=== PATIENT | female | born 1950 | race Caucasian/White ===

== ENCOUNTER → 2018-05-28 09:20 | Outpatient (CLI) | payer MEDICARE, OTHER, SELFPAY ==
--- NOTE | 2018-05-28 09:26 | MM_ITS ---
MM Dig screening mamm BI w/CAD ORDERING PHYSICIAN : Lianna Newberry PATIENT AGE: 67 years GENDER: Female COMPARISON: March 2017. February I iNDICATION: ITS.REASON: SCREENING no hormones no new complaints. Family history paternal with breast cancer TECHNIQUE: Standard CC and MLO images were obtained. R2 CAD reviewed. FINDINGS: With generalized fatty replacement with minimal fibroglandular elements. Low-density breast with no dominant mass nor suspicious calcification.2 Small long-standing stable benign calcifications inferior left breast not of concern & can be followed safely. No significant change since prior studies. CAD computer review highlights no areas of concern either. Bilateral follow-up in one year ------ IMPRESSION: Stable bilateral mammogram with no significant new findings. No new areas of concern BI-RADS Category: 1 Negative RECOMMENDED FOLLOW-UP: 1YR 1 YEAR FOLLOW-UP (A letter has been sent to the patient regarding results of the study.)
== END ==
PROVIDERS: Family Provider Internal Medicine Adolescent Medicine; PCP Internal Medicine Adolescent Medicine; Visit Provider Nurse Practitioner Family
DX: Z12.31 Encounter for screening mammogram for malignant neoplasm of breast (principal)
CPT/HCPCS: 77067

== ENCOUNTER → 2018-12-06 09:04 | Outpatient (CLI) | payer MEDICARE, OTHER, SELFPAY ==
--- NOTE | 2018-12-06 09:14 | FL_ITS ---
FL upper GI esophagus w/air HISTORY: Nausea, surgery, ORDERING PHYSICIAN: Lianna Newberry PATIENT AGE: 68 years FINDINGS: There is persistent mild smooth narrowing of the distal esophagus. This could be related to patient's prior hiatal hernia surgery. No annular constricting lesions or mucosal abnormality evident. Stomach and duodenum have an unremarkable appearance without evidence of mass or ulcer. There is a duodenal diverticulum projecting off the medial portion of the descending duodenum. Fluoroscopy time: 2 minutes 11 seconds. IMPRESSION: 1. No acute finding. 2. Smooth narrowing of the distal esophagus which may be related to patient's prior esophageal surgery. 3. Small duodenal diverticulum
[2018-12-06 10:45] LABS: Hemoglobin A1C 6.8 % (0.0-7.0)
[2018-12-06 10:50] LABS: Basophils % 0.4 % (0.1-2.0); Eosinophils # 0.2 K/mm3 (0.0-0.4); Eosinophils % 3.3 % (0.1-12.0); Hemoglobin 10.2 g/dL (12.2-16.2); Lymphocytes # 2.2 K/mm3 (0.7-4.5); Lymphocytes % 39.7 % (10-50); Mean Corpuscular HGB Conc 30.1 g/dL (31.8-35.4); Mean Corpuscular Volume 79.9 fl (81-99); Mean Platelet Volume 6.8 fl (7.4-10.4); Monocytes # 0.3 K/mm3 (0.1-1.0); Monocytes % 5.7 % (1.7-9.3); Neutrophils # 2.8 K/mm3 (1.8-7.8); Neutrophils % 50.9 % (37.0-80.0); Platelet Count 378 K/mm3 (142-424); Red Blood Count 4.25 M/mm3 (4.20-5.40); Red Cell Distribution Width 15.4 % (11.5-17.5); White Blood Count 5.6 K/mm3 (4.8-10.8)
[2018-12-06 11:50] LABS: Alanine Aminotransferase 20 U/L (12-78); Albumin Level 3.6 gm/dL (3.4-5.0); Albumin/Globulin Ratio 1.2 (1.1-1.8); Alkaline Phosphatase 104 U/L (46-116); Anion Gap 15.4 mEq/L (5-15); Aspartate Amino Transferase 17 U/L (15-37); Bilirubin,Total 0.2 mg/dL (0.2-1.0); Blood Urea Nitrogen 19 mg/dL (7-18); Calcium 8.8 mg/dL (8.5-10.1); Carbon Dioxide 28 mmol/L (21.0-32.0); Chloride 105 mmol/L (98-107); Chol/HDL Ratio 3.4 (1-3.5); Cholesterol 152 mg/dL (140-200); Creatinine,Serum 0.84 mg/dL (0.55-1.02); Estimated Glomerular Filt Rate 67 ml/min (>60); GFR (African American) 81 ML/MIN (>60); Globulin 2.9 gm/dl (1.3-3.2); Glucose 107 mg/dL (74-106); HDL Cholesterol 45 mg/dL (29-89); LDL Cholesterol 86 mg/dL (0-130); Potassium 4.4 mmoL/L (3.5-5.1); Sodium 144 mmol/L (136-145); Thyroid Stimulating Hormone 2.29 uIU/ml (0.358-3.740); Total Protein,Serum 6.5 gm/dL (6.4-8.2); Triglycerides 106 mg/dL (30-200); Uric Acid 5.6 mg/dL (2.6-7.2); VLDL Cholesterol 21 mg/dL (0-40)
[2018-12-06 11:53] LABS: C-Reactive Protein < 0.2 mg/L (0.0-0.9)
[2018-12-07 11:36] LABS: Creatinine, Urine 154.7 mg/dL (Not Estab.); Microalbumin, Urine 10.9 ug/mL (Not Estab.)
[2018-12-07 14:21] LABS: Anti-Centromere B Antibodies <0.2 AI (0.0-0.9); Anti-Jo-1 <0.2 AI (0.0-0.9); Anti-Smith Antibody <0.2 AI (0.0-0.9); Antichromatin Antibodies <0.2 AI (0.0-0.9); Antiscleroderma-70 Antibodies <0.2 AI (0.0-0.9); RNP Antibodies <0.2 AI (0.0-0.9); Sjogren's Anti-SS-A <0.2 AI (0.0-0.9); Sjogren's Anti-SS-B <0.2 AI (0.0-0.9)
[2018-12-07 16:15] LABS: Anti-DNA (DS) Ab Qn <1 IU/mL (0-9); RA Latex Turbid. <10.0 IU/mL (0.0-13.9)
[2018-12-08 07:44] LABS: Anti-Cyclic Citrullinated Pept 5 units (0-19)
== END ==
PROVIDERS: PCP Nurse Practitioner Family; Visit Provider Nurse Practitioner Family
DX: M25.50 Pain in unspecified joint (principal); E11.9 Type 2 diabetes mellitus without complications; E78.5 Hyperlipidemia, unspecified; R13.10 Dysphagia, unspecified; R11.0 Nausea; R68.3 Clubbing of fingers; R80.9 Proteinuria, unspecified
CPT/HCPCS: 36415; 74241; 80053; 80061; 82043; 82570; 83036; 84443; 84550; 85025; 86140; 86200; 86225; 86235; 86431

== ENCOUNTER → 2018-12-09 10:07 | Outpatient (CLI) | payer MEDICARE, OTHER, SELFPAY ==
[2018-12-09 12:09] LABS: Ferritin 9 ng/mL (8-388)
[2018-12-10 08:26] LABS: Iron 35 ug/dL (27-139); UIBC 476 ug/dL (118-369)
[2018-12-10 12:27] LABS: Folate 14.7 ng/mL (>3.0); Iron Saturation 7 % (15-55); Vitamin B12 249 pg/mL (232-1245)
[2018-12-10 17:11] LABS: Angiotensin Converting Enzyme 45 U/L (14-82)
== END ==
PROVIDERS: Visit Provider Nurse Practitioner Family
DX: D50.9 Iron deficiency anemia, unspecified (principal)
CPT/HCPCS: 36415; 82164; 82607; 82728; 82746; 83540; 83550

== ENCOUNTER → 2018-12-21 12:41 | Outpatient (CLI) | payer MEDICARE, OTHER, SELFPAY ==
--- NOTE | 2018-12-21 | XR_ITS ---
XR hand LT min 3V HISTORY: Nail clubbing ORDERING PHYSICIAN: Lianna Newberry PATIENT AGE: 68 years COMPARISON: 02/12/2016 FINDINGS: There are osteoarthritic changes at the DIP joint of the second, fourth, and fifth fingers. This has progressed. Osteoarthritic changes are also present at the first metacarpal carpal joint with periarticular calcification and mild lateral subluxation of the first metacarpal. This has also progressed. No fracture or dislocation. No lytic or blastic change. IMPRESSION: Progressive osteoarthritic change
--- NOTE | 2018-12-21 | XR_ITS ---
XR hand RT min 3V HISTORY: Nail clubbing ORDERING PHYSICIAN: Lianna Newberry PATIENT AGE: 68 years COMPARISON: None FINDINGS: There are mild osteoarthritic changes of the second DIP joint and the first metacarpophalangeal joint as well as the first carpal metacarpal joint with periarticular calcification at the first metacarpal carpal joint. There is an expansile cystic lesion involving the base of the first metacarpal which measures 16 x 13 mm. This is very well circumscribed. IMPRESSION: 1. Mild osteoarthritic change 2. 16 mm cystic lesion at the base of the first metacarpal. Follow-up is suggested to confirm stability. The lesion is well circumscribed with a thin sclerotic margin. MRI without and with contrast may be of further value.
--- NOTE | 2018-12-21 | XR_ITS ---
XR chest 2V HISTORY: Nail clubbing ORDERING PHYSICIAN: Lianna Newberry PATIENT AGE: 68 years COMPARISON: None FINDINGS: Unremarkable heart size. Atherosclerotic calcification is present in the aortic arch. There are chronic changes in the lung bases. No lobar consolidation or collapse. No acute bony findings. Mild thoracolumbar curvature convex right. IMPRESSION: Chronic changes, no acute finding
== END ==
PROVIDERS: PCP Internal Medicine Adolescent Medicine; Visit Provider Nurse Practitioner Family
DX: R68.3 Clubbing of fingers (principal); L60.8 Other nail disorders; M25.50 Pain in unspecified joint
CPT/HCPCS: 71046; 73130

== ENCOUNTER → 2019-02-10 10:47 | Outpatient (CLI) | payer MEDICARE, OTHER, SELFPAY ==
--- NOTE | 2019-02-10 11:39 | NM_ITS ---
CARDIOLITE SPECT MYOCARDIAL PERFUSION LEXISCAN, REST AND STRESS: [facility] REVIEW QGS EF AND WALL MOTION EVALUATION: QPS - PERFUSION EVALUATION HISTORY: SOB, Syncope, Fatigue, HTN, DM, Family history DOSE: 11.06 mCi technetium 99m mibi intravenously at rest followed by 32.6 mCi technetium 99m mibi following the intravenous ministration of 0.4 mg of Lexiscan. Resting blood pressure is 157/89. Stress blood pressure 135/75. FINDINGS: Ejection fraction is calculated to be 60%. Uniform myocardial activity with both stress and rest gated images calculated ejection fraction of 60% with normal wall motion IMPRESSION: No scintigraphic evidence of Lexiscan-induced myocardial ischemia with normal ejection fraction normal wall motion
--- NOTE | 2019-02-10 13:51 | HMH.ITSHM ---
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 []metformin pravastatin metoprolol asa omeprazole lorazepam
== END ==
PROVIDERS: PCP Internal Medicine Adolescent Medicine; Visit Provider Urology
DX: R06.02 Shortness of breath (principal); E78.5 Hyperlipidemia, unspecified; I10 Essential (primary) hypertension; I70.0 Atherosclerosis of aorta; Z82.49 Family history of ischemic heart disease and other diseases of the circulatory system
CPT/HCPCS: 78452; 93017; 93306; A9502; J2785

== ENCOUNTER → 2019-07-07 10:23 | Outpatient (CLI) | payer MEDICARE, OTHER, SELFPAY ==
--- NOTE | 2019-07-07 10:26 | MM_ITS ---
PROCEDURE: MM DIG SCREENING MAMM BI W/CAD Patient Age:68Y CLINICAL INDICATION: SCREENING routine screening mammogram. No hormones; no new complaints... Family history: Paternal aunt with breast cancer postmenopausal. COMPARISON: [facility] DIGITAL MAMM-SCREEN BILATERAL from 04/07/2011 [facility] DIG MAMM-SCREEN AVERY from 08/04/2013 [facility] DIG MAMM-SCREEN AVERY from 03/08/2015 [facility] DIG MAMM-SCREEN AVERY W/CAD from 04/15/2017 [facility] MM Dig screening mamm BI w/CAD from 05/28/2018 TECHNIQUE: Standard CC and MLO images were obtained. R2 CAD reviewed. FINDINGS: Low-density breast with generalized fatty replacement. No dominant or suspicious mass in either breast. No suspicious calcifications. No significant change since multiple priors available studies. Bilateral follow-up 1 year recommended. IMPRESSION: negative stable bilateral mammogram. Bilateral follow-up 1 year. Low-density breast with diffuse fatty replacement BI-RAD Category: 1 Negative FOLLOW-UP: 1YR 1 Year Follow-up (A letter has been sent to the patient regarding results of the study.) Dictated by: Grupo Smith MD 07/11/2019 11:04 Electronically signed by Grupo Smith MD in [place] 07/11/2019 11:04
== END ==
PROVIDERS: PCP Internal Medicine Adolescent Medicine; Visit Provider Nurse Practitioner Family
DX: Z12.31 Encounter for screening mammogram for malignant neoplasm of breast (principal)
CPT/HCPCS: 77067

== ENCOUNTER → 2019-11-18 10:17 | Outpatient (CLI) | payer MEDICARE, OTHER, SELFPAY ==
[2019-11-18 10:53] LABS: Basophils % 0.4 % (0.1-2.0); Eosinophils # 0.1 K/mm3 (0.0-0.4); Eosinophils % 1.7 % (0.1-12.0); Hematocrit 27.2 % (37.0-47.0); Lymphocytes % 43.4 % (10-50); Mean Corpuscular HGB Conc 29.1 g/dL (31.8-35.4); Mean Corpuscular Hemoglobin 24.6 pg (27.0-31.2); Mean Corpuscular Volume 84.6 fl (81-99); Mean Platelet Volume 7.5 fl (7.4-10.4); Monocytes # 0.3 K/mm3 (0.1-1.0); Monocytes % 6.7 % (1.7-9.3); Neutrophils # 2.1 K/mm3 (1.8-7.8); Neutrophils % 47.7 % (37.0-80.0); Platelet Count 404 K/mm3 (142-424); Red Blood Count 3.21 M/mm3 (4.20-5.40); Red Cell Distribution Width 13.8 % (11.5-17.5); White Blood Count 4.5 K/mm3 (4.8-10.8)
[2019-11-18 11:01] LABS: Hemoglobin 7.9 g/dL (12.2-16.2)
[2019-11-18 12:53] LABS: Alanine Aminotransferase 17 U/L (12-78); Albumin Level 3.6 gm/dL (3.4-5.0); Albumin/Globulin Ratio 1.4 (1.1-1.8); Alkaline Phosphatase 86 U/L (46-116); Anion Gap 12.8 mEq/L (5-15); Aspartate Amino Transferase 21 U/L (15-37); Bilirubin,Total 0.2 mg/dL (0.2-1.0); Blood Urea Nitrogen 13 mg/dL (7-18); Calcium 8.6 mg/dL (8.5-10.1); Carbon Dioxide 29 mmol/L (21.0-32.0); Chloride 107 mmol/L (98-107); Chol/HDL Ratio 3.8 (1-3.5); Cholesterol 155 mg/dL (140-200); Creatinine,Serum 0.91 mg/dL (0.55-1.02); Estimated Glomerular Filt Rate 61 ml/min (>60); Ferritin 7 ng/mL (8-388); GFR (African American) 74 ML/MIN (>60); Globulin 2.5 gm/dl (1.3-3.2); Glucose 91 mg/dL (74-106); HDL Cholesterol 41 mg/dL (29-89); LDL Cholesterol 74 mg/dL (0-130); Potassium 4.8 mmoL/L (3.5-5.1); Sodium 144 mmol/L (136-145); Thyroid Stimulating Hormone 2.93 uIU/ml (0.358-3.740); Total Protein,Serum 6.1 gm/dL (6.4-8.2); Triglycerides 202 mg/dL (30-200); VLDL Cholesterol 40 mg/dL (0-40)
[2019-11-18 15:05] LABS: Hemoglobin A1C 6.5 % (0.0-7.0)
[2019-11-19 08:09] LABS: Iron 20 ug/dL (27-139); Iron Saturation 3 % (15-55); UIBC 553 ug/dL (118-369)
[2019-11-19 09:10] LABS: Creatinine, Urine 214.8 mg/dL (Not Estab.); Microalbumin, Urine 13.6 ug/mL (Not Estab.)
[2019-11-19 09:46] LABS: Folate 15.6 ng/mL (>3.0); Vitamin B12 279 pg/mL (232-1245)
== END ==
PROVIDERS: Visit Provider Nurse Practitioner Family
DX: D50.9 Iron deficiency anemia, unspecified (principal); I10 Essential (primary) hypertension; E78.5 Hyperlipidemia, unspecified; E11.9 Type 2 diabetes mellitus without complications; Z79.84 Long term (current) use of oral hypoglycemic drugs
CPT/HCPCS: 36415; 80053; 80061; 82043; 82570; 82607; 82728; 82746; 83036; 83540; 83550; 84443; 85025

== ENCOUNTER → 2019-11-21 13:38 | Outpatient (CLI) | payer MEDICARE, OTHER, SELFPAY ==
[2019-11-21 14:26] LABS: Hematocrit 25.3 % (37.0-47.0)
[2019-11-21 14:29] LABS: Hemoglobin 7.4 g/dL (12.2-16.2)
== END ==
PROVIDERS: Visit Provider Internal Medicine Adolescent Medicine
DX: D64.9 Anemia, unspecified (principal)
CPT/HCPCS: 36415; 85014; 85018

== ENCOUNTER 2019-11-22 09:03 | Outpatient (CLI) | payer MEDICARE, OTHER, SELFPAY ==
[2019-11-22] VITALS (22 sets, daily range): BP systolic 125–146; BP diastolic 67–90; PULSE 80–87; RESP 16–18; TEMP 36.5–36.8; O2SAT 97–99; BMI 31.8
[2019-11-22 11:25] LABS: Hematocrit 25.7 % (37.0-47.0)
[2019-11-22 11:26] LABS: Hemoglobin 7.5 g/dL (12.2-16.2)
--- NOTE | 2019-11-22 14:43 | PC.NURSE ---
1130 1st unit of blood initiated at this time. VSS. Lungs CTA. Resp easy/reg. IV patent. Pt denies c/o at this time. Pt instructed on s/s of blood transfusion reaction/pt verbs understanding of all instructions/handout given as well. No problems noted at this time. 1230 Pt tolerating 1st unit of blood well. No s/s of transfusion reaction or problems noted. Denies c/o at this time. VSS. Talking and laughing with staff as care given. 1345 1st unit of blood complete at this time. pt has tolerated well with no problems noted, no s/s reaction. VSS. Lungs CTA. Denies pain or c/o. IV patent. Resp easy/reg. Skin warm/dry to touch.
--- NOTE | 2019-11-22 15:22 | PC.NURSE ---
1410 2nd unit of blood initiated at this time. Pt denies c/o. VSS. Resp easy/reg. Lungs CTA. IV patent. Reviewed s/s of transfusion reaction with pt verbalizing understanding of all instructions/handout reviewed. 1510 Pt tolerating 2nd unit of blood well at this time with no problems and no s/s transfusion reaction noted. VSS. Lungs CTA. IV patent. Resp easy/reg. Denies c/o.
--- NOTE | 2019-11-22 17:19 | PC.NURSE ---
1610 Transfusion of 2nd unit of blood complete. VSS. Pt has tolerated well with no s/s transfusion reaction or problems noted. Pt denies c/o. Lungs CTA. Resp easy/reg. Skin warm/dry to touch. Will obtain 1 hour post H&H at 1710. 1710 Pt stable/no problems noted. No s/s transfusion reaction noted. Denies c/o. VSS. 1 hour post transfusion H&H obtained/to lab/ awaiting results.
[2019-11-22 17:24] LABS: Hematocrit 33.8 % (37.0-47.0)
[2019-11-22 17:47] LABS: Hemoglobin 10.4 g/dL (12.2-16.2)
--- NOTE | 2019-11-22 17:55 | PC.NURSE ---
1 hour post transfusion H&H stable at 10.4/33.8.
== END 2019-11-22 17:30 | disposition home or self-care (01) ==
LOC: INF 09:03
PROVIDERS: PCP Internal Medicine Adolescent Medicine; Visit Provider Nurse Practitioner Family
DX: D50.9 Iron deficiency anemia, unspecified (principal)
CPT/HCPCS: 36430; 85014; 85018; 86850; P9016

== ENCOUNTER → 2019-11-28 11:21 | Outpatient (CLI) | payer MEDICARE, OTHER, SELFPAY ==
[2019-11-28 11:58] LABS: Hematocrit 35.9 % (37.0-47.0); Hemoglobin 10.7 g/dL (12.2-16.2)
== END ==
PROVIDERS: Visit Provider Internal Medicine Adolescent Medicine
DX: D64.9 Anemia, unspecified (principal)
CPT/HCPCS: 36415; 85014; 85018

== ENCOUNTER → 2020-12-03 13:13 | Outpatient (CLI) | payer MEDICARE, OTHER, SELFPAY ==
[2020-12-03 13:24] LABS: Microscopic, Urine URINE MICROSCOPIC (MICROSCOPIC)
[2020-12-03 13:44] LABS: Basophils % 0.6 % (0.1-2.0); Eosinophils # 0.1 K/mm3 (0.0-0.4); Eosinophils % 1.2 % (0.1-12.0); Hematocrit 38.3 % (37.0-47.0); Hemoglobin 11.4 g/dL (12.2-16.2); Lymphocytes # 2.6 K/mm3 (0.7-4.5); Lymphocytes % 41.2 % (10-50); Mean Corpuscular HGB Conc 29.8 g/dL (31.8-35.4); Mean Corpuscular Volume 84.1 fl (81-99); Mean Platelet Volume 7.6 fl (7.4-10.4); Monocytes # 0.3 K/mm3 (0.1-1.0); Neutrophils # 3.3 K/mm3 (1.8-7.8); Platelet Count 418 K/mm3 (142-424); Red Blood Count 4.55 M/mm3 (4.20-5.40); Red Cell Distribution Width 14.9 % (11.5-17.5); White Blood Count 6.3 K/mm3 (4.8-10.8)
[2020-12-03 13:48] LABS: Appearance,Urine CLEAR (Clear); Bilirubin,Urine Negative (Negative); Blood, Urine TRACE-I (Negative); Color,Urine YELLOW (Yellow); Glucose,Urine (UA) Negative (Negative); Ketones,Urine Negative (Negative); Leukocyte Esterase,Urine Negative (Negative); Nitrate,Urine Negative (Negative); Protein,Urine TRACE (Negative); Specific Gravity, Urine >= 1.030 (1.005-1.030); Urobilinogen,Urine 0.2 EU/dl (0.2)
[2020-12-03 13:54] LABS: Hemoglobin A1C 6.4 % (4.0-6.0)
[2020-12-03 13:58] LABS: Microalbumin/Creatinine Ratio 4.6
[2020-12-03 13:59] LABS: Creatinine,Urine Random 242 mg/dL (Not Estab.)
[2020-12-03 14:02] LABS: Squamous Epithelial Cell,Urine Occasional #/hpf (0-5)
[2020-12-03 14:09] LABS: Alanine Aminotransferase 15 U/L (12-78); Albumin Level 5.1 g/dl (3.5-5.0); Albumin/Globulin Ratio 1.8 (1.1-1.8); Alkaline Phosphatase 107 U/L (38-126); Anion Gap 13.5 mEq/L (5-15); Aspartate Amino Transferase 30 U/L (14-36); Bilirubin,Total 0.4 mg/dl (0.2-1.3); Blood Urea Nitrogen 17 mg/dl (7-17); Calcium 10.6 mg/dl (8.4-10.2); Carbon Dioxide 30 mmol/L (22.0-30.0); Chloride 106 mmol/L (98-107); Chol/HDL Ratio 4.4 (1-3.5); Cholesterol 226 mg/dl (140-200); Estimated Glomerular Filt Rate 62 ml/min (>60); GFR (African American) 75 ML/MIN (>60); Globulin 2.9 g/dL (1.3-3.2); Glucose 112 mg/dl (74-100); HDL Cholesterol 51 mg/dl (40-60); Potassium 5.5 mmoL/L (3.5-5.1); Sodium 144 mmol/L (136-145); Triglycerides 359 mg/dl (30-150); VLDL Cholesterol 72 mg/dL (0-40)
[2020-12-03 14:20] LABS: Direct LDL Cholesterol 108.67 mg/dL (100-129)
[2020-12-03 14:39] LABS: Thyroid Stimulating Hormone 4.41 uIU/mL (0.465-4.68)
== END ==
PROVIDERS: Visit Provider Nurse Practitioner Family
DX: E11.9 Type 2 diabetes mellitus without complications (principal); I10 Essential (primary) hypertension; E78.5 Hyperlipidemia, unspecified; D50.0 Iron deficiency anemia secondary to blood loss (chronic)
CPT/HCPCS: 36415; 80053; 80061; 81001; 82043; 82570; 83036; 84443; 85025

== ENCOUNTER → 2021-01-26 10:45 | Outpatient (CLI) | payer MEDICARE, OTHER, SELFPAY | PROVIDERS: Visit Provider Nurse Practitioner Family | DX: D50.0 Iron deficiency anemia secondary to blood loss (chronic) (principal) | CPT/HCPCS: 36415 ==

== ENCOUNTER 2021-02-18 14:00 | Outpatient (CLI) | payer MEDICARE, OTHER, SELFPAY ==
[2021-02-18 14:23] VITALS: BP 145/82; PULSE 94; RESP 18; TEMP 36.6; O2SAT 99
[2021-02-18 15:35] VITALS: BP 135/73; PULSE 88; RESP 18; O2SAT 97
== END 2021-02-18 15:35 | disposition home or self-care (01) ==
LOC: INF 14:00
PROVIDERS: PCP Internal Medicine Adolescent Medicine; Visit Provider Nurse Practitioner Family
DX: D50.0 Iron deficiency anemia secondary to blood loss (chronic) (principal)
CPT/HCPCS: 96365; J1439

== ENCOUNTER 2021-02-25 14:05 | Outpatient (CLI) | payer MEDICARE, OTHER, SELFPAY ==
[2021-02-25 14:19] VITALS: BP 119/74; PULSE 92; RESP 18; TEMP 36.7; O2SAT 98
[2021-02-25 14:49] VITALS: BP 121/78; PULSE 90; RESP 18; O2SAT 98
[2021-02-25 15:00] VITALS: BP 116/79; PULSE 78; RESP 18; O2SAT 98
== END 2021-02-25 15:00 | disposition home or self-care (01) ==
LOC: INF 14:05
PROVIDERS: Visit Provider Nurse Practitioner Family
DX: D50.0 Iron deficiency anemia secondary to blood loss (chronic) (principal)
CPT/HCPCS: 96365; J1439

== ENCOUNTER → 2021-03-09 10:39 | Outpatient (CLI) | payer MEDICARE, OTHER, SELFPAY ==
[2021-03-09 11:12] LABS: Basophils % 0.6 % (0.1-2.0); Eosinophils # 0.1 K/mm3 (0.0-0.4); Eosinophils % 1.2 % (0.1-12.0); Hematocrit 38.6 % (37.0-47.0); Hemoglobin 10.7 g/dL (12.2-16.2); Lymphocytes # 1.8 K/mm3 (0.7-4.5); Lymphocytes % 40.9 % (10-50); Mean Corpuscular HGB Conc 27.7 g/dL (31.8-35.4); Mean Corpuscular Hemoglobin 25.7 pg (27.0-31.2); Mean Corpuscular Volume 92.6 fl (81-99); Mean Platelet Volume 7.5 fl (7.4-10.4); Monocytes # 0.3 K/mm3 (0.1-1.0); Monocytes % 6.3 % (1.7-9.3); Neutrophils # 2.2 K/mm3 (1.8-7.8); Neutrophils % 50.9 % (37.0-80.0); Platelet Count 348 K/mm3 (142-424); Red Blood Count 4.17 M/mm3 (4.20-5.40); White Blood Count 4.3 K/mm3 (4.8-10.8)
[2021-03-09 11:32] LABS: Red Cell Distribution Width 26.4 % (11.5-17.5)
[2021-03-09 13:12] LABS: Anion Gap 12.5 mEq/L (5-15); Blood Urea Nitrogen 12 mg/dl (7-17); Calcium 9.4 mg/dl (8.4-10.2); Carbon Dioxide 25 mmol/L (22.0-30.0); Chloride 107 mmol/L (98-107); Estimated Glomerular Filt Rate 82 ml/min (>60); GFR (African American) 100 ML/MIN (>60); Glucose 94 mg/dl (74-100); Potassium 4.5 mmoL/L (3.5-5.1); Sodium 140 mmol/L (136-145)
== END ==
PROVIDERS: Visit Provider Colon & Rectal Surgery
DX: Z79.891 Long term (current) use of opiate analgesic (principal); Z01.818 Encounter for other preprocedural examination; R06.02 Shortness of breath; I70.0 Atherosclerosis of aorta
CPT/HCPCS: 36415; 80048; 85025

== ENCOUNTER → 2021-07-26 12:40 | Outpatient (CLI) | payer MEDICARE, OTHER, SELFPAY ==
--- NOTE | 2021-07-26 12:44 | MM_ITS ---
PROCEDURE: MM DIG SCREENING MAMM BI W/CAD Digital Breast Tomosynthesis Included CLINICAL INDICATION: SCREENING There is a history of breast cancer in the patient's daughter before menopause the patient's maternal diagnosed after menopause. COMPARISON: MG [facility] DIG MAMM-SCREEN AVERY W/CAD from 04/15/2017 MG [facility] MM Dig screening mamm BI w/CAD from 05/28/2018 MG MM DIG SCREENING MAMM BI W/CAD from 07/07/2019 TECHNIQUE: Standard CC and MLO images and 3D Tomosynthesis was obtained. R2 CAD reviewed. FINDINGS: Breasts are composed primarily of with minimal scattered fibroglandular densities breast. There are no CAD markings. There are couple of benign-appearing microcalcifications left breast. There is no suspicious lesion and no suspicious microcalcifications. IMPRESSION: Fatty type breast parenchyma with no suspicious lesions seen BI-RAD Category: 2 Benign Finding(s) FOLLOW-UP: 1YR 1 Year Follow-up (A letter has been sent to the patient regarding results of the study.) Dictated by: Dr. Jesus Gibbs MD 08/01/2021 15:28 Dr. Jesus Gibbs MD in [place] 08/01/2021 15:28
== END ==
PROVIDERS: PCP Nurse Practitioner Family; Visit Provider Internal Medicine Adolescent Medicine
DX: Z12.31 Encounter for screening mammogram for malignant neoplasm of breast (principal)
CPT/HCPCS: 77063; 77067

== ENCOUNTER → 2021-08-12 12:16 | Outpatient (CLI) | payer MEDICARE, OTHER, SELFPAY ==
[2021-08-12 13:25] LABS: Microalbumin/Creatinine Ratio 4.4
[2021-08-12 13:26] LABS: Creatinine,Urine Random 254 mg/dL (Not Estab.)
[2021-08-12 13:32] LABS: Alanine Aminotransferase 14 U/L (12-78); Albumin Level 4.3 g/dl (3.5-5.0); Albumin/Globulin Ratio 1.9 (1.1-1.8); Alkaline Phosphatase 96 U/L (38-126); Anion Gap 11.9 mEq/L (5-15); Aspartate Amino Transferase 32 U/L (14-36); Bilirubin,Total 0.4 mg/dl (0.2-1.3); Blood Urea Nitrogen 13 mg/dl (7-17); Calcium 9.3 mg/dl (8.4-10.2); Carbon Dioxide 31 mmol/L (22.0-30.0); Chloride 103 mmol/L (98-107); Chol/HDL Ratio 3.8 (1-3.5); Cholesterol 165 mg/dl (140-200); Estimated Glomerular Filt Rate 82 ml/min (>60); GFR (African American) 100 ML/MIN (>60); Globulin 2.3 g/dL (1.3-3.2); Glucose 102 mg/dl (74-100); HDL Cholesterol 43 mg/dl (40-60); Potassium 4.9 mmoL/L (3.5-5.1); Sodium 141 mmol/L (136-145); Total Protein,Serum 6.6 g/dl (6.3-8.2); Triglycerides 219 mg/dl (30-150); VLDL Cholesterol 44 mg/dL (0-40)
[2021-08-12 13:39] LABS: Basophils % 0.4 % (0.1-2.0); Eosinophils # 0.1 K/mm3 (0.0-0.4); Hematocrit 44.5 % (37.0-47.0); Hemoglobin 14.4 g/dL (12.2-16.2); Lymphocytes # 2.2 K/mm3 (0.7-4.5); Mean Corpuscular HGB Conc 32.4 g/dL (31.8-35.4); Mean Corpuscular Hemoglobin 32.1 pg (27.0-31.2); Mean Corpuscular Volume 99.1 fl (81-99); Mean Platelet Volume 8.5 fl (7.4-10.4); Monocytes # 0.4 K/mm3 (0.1-1.0); Monocytes % 7.4 % (1.7-9.3); Neutrophils # 2.7 K/mm3 (1.8-7.8); Neutrophils % 49.2 % (37.0-80.0); Platelet Count 171 K/mm3 (142-424); Red Blood Count 4.49 M/mm3 (4.20-5.40); Red Cell Distribution Width 13.4 % (11.5-17.5); White Blood Count 5.4 K/mm3 (4.8-10.8)
[2021-08-12 13:43] LABS: Direct LDL Cholesterol 76.05 mg/dL (100-129)
[2021-08-12 20:05] LABS: Hemoglobin A1C 7.7 % (4.0-6.0)
== END ==
PROVIDERS: Visit Provider Nurse Practitioner Family
DX: E11.9 Type 2 diabetes mellitus without complications (principal); E78.5 Hyperlipidemia, unspecified; D50.0 Iron deficiency anemia secondary to blood loss (chronic); Z79.84 Long term (current) use of oral hypoglycemic drugs
CPT/HCPCS: 36415; 80053; 80061; 82043; 82570; 83036; 85025

== ENCOUNTER → 2022-02-10 10:46 | Outpatient (CLI) | payer MEDICARE, OTHER, SELFPAY ==
--- NOTE | 2022-02-10 10:59 | XR_ITS ---
FINAL REPORT CLINICAL HISTORY: LOW BACK PAIN W/SCIATICA FINDINGS: LUMBAR SPINE 5 views of the lumbar spine were obtained. There is fusion of L4-L5. There is no evidence of fracture or dislocation. The vertebral alignment is normal. There is leftward curvature centered at L4. There are mild degenerative changes. There are mild vascular calcifications. IMPRESSION: Mild degenerative change with no acute bony abnormality. Reviewed, Interpreted and Dictated by Gen Davalos III, MD Transcribed by Mariaa Manriquez Authenticated by Gen Davalos III, MD on 02/10/2022 01:33:05 PM [facility]
[2022-02-10 12:35] LABS: Basophils # 0.1 K/mm3 (0-0.2); Basophils % 1.3 % (0.1-2.0); Eosinophils # 0.2 K/mm3 (0.0-0.4); Eosinophils % 2.9 % (0.1-12.0); Hematocrit 41.4 % (37.0-47.0); Hemoglobin 13.4 g/dL (12.2-16.2); Lymphocytes # 1.9 K/mm3 (0.7-4.5); Lymphocytes % 35.7 % (10-50); Mean Corpuscular HGB Conc 32.4 g/dL (31.8-35.4); Mean Corpuscular Hemoglobin 31.8 pg (27.0-31.2); Mean Corpuscular Volume 98.1 fl (81-99); Mean Platelet Volume 8.8 fl (7.4-10.4); Monocytes # 0.3 K/mm3 (0.1-1.0); Monocytes % 6.3 % (1.7-9.3); Neutrophils # 2.9 K/mm3 (1.8-7.8); Neutrophils % 53.9 % (37.0-80.0); Platelet Count 263 K/mm3 (142-424); Red Blood Count 4.22 M/mm3 (4.20-5.40); White Blood Count 5.3 K/mm3 (4.8-10.8)
[2022-02-10 12:46] LABS: Alanine Aminotransferase 17 U/L (12-78); Albumin Level 4.2 g/dl (3.5-5.0); Albumin/Globulin Ratio 1.9 (1.1-1.8); Alkaline Phosphatase 61 U/L (38-126); Anion Gap 10.8 mEq/L (5-15); Aspartate Amino Transferase 39 U/L (14-36); Bilirubin,Total 0.7 mg/dl (0.2-1.3); Blood Urea Nitrogen 23 mg/dl (7-17); Carbon Dioxide 23 mmol/L (22.0-30.0); Chloride 107 mmol/L (98-107); Chol/HDL Ratio 4.3 (1-3.5); Cholesterol 154 mg/dl (140-200); Estimated Glomerular Filt Rate 82 ml/min (>60); GFR (African American) 100 ML/MIN (>60); Globulin 2.2 g/dL (1.3-3.2); Glucose 83 mg/dl (74-100); HDL Cholesterol 36 mg/dl (40-60); Potassium 4.8 mmoL/L (3.5-5.1); Sodium 136 mmol/L (136-145); Total Protein,Serum 6.4 g/dl (6.3-8.2); Triglycerides 185 mg/dl (30-150); VLDL Cholesterol 37 mg/dL (0-40)
[2022-02-10 12:57] LABS: Direct LDL Cholesterol 70.08 mg/dL (100-129)
[2022-02-10 13:16] LABS: Thyroid Stimulating Hormone 1.82 uIU/mL (0.465-4.68)
[2022-02-10 13:35] LABS: Hemoglobin A1C 5.7 % (4.0-6.0)
[2022-02-10 13:41] LABS: Free T4 (Free Thyroxine) 0.98 ng/dl (0.78-2.19)
== END ==
PROVIDERS: PCP Nurse Practitioner Family; Visit Provider Nurse Practitioner Family
DX: E11.9 Type 2 diabetes mellitus without complications (principal); I10 Essential (primary) hypertension; E78.5 Hyperlipidemia, unspecified; R63.4 Abnormal weight loss; D50.0 Iron deficiency anemia secondary to blood loss (chronic); M54.41 Lumbago with sciatica, right side; Z79.84 Long term (current) use of oral hypoglycemic drugs
CPT/HCPCS: 36415; 72110; 80053; 80061; 83036; 84439; 84443; 85025

== ENCOUNTER → 2022-08-15 15:48 | Outpatient (CLI) | payer MEDICARE, OTHER, SELFPAY ==
--- NOTE | 2022-08-15 15:53 | MM_ITS ---
PROCEDURE INFORMATION: Exam: MG Bilateral Screening 3D Mammography Exam date and time: 08/15/2022 3:45 PM Age: 71 years old Clinical indication: Screening examination. Her daughter had breast cancer. TECHNIQUE: Imaging protocol: Bilateral Screening tomosynthesis and 2D mammography including computer-aided detection (CAD) when performed. COMPARISON: 1. MG MM DIG SCREENING MAMM BI W/CAD 07/26/2021 1:13 PM 2. MG MM DIG SCREENING MAMM BI W/CAD 07/07/2019 10:43 AM 3. MG [facility] MM Dig screening mamm BI w/CAD 05/28/2018 9:38 AM 4. MG [facility] DIG MAMM-SCREEN AVERY W/CAD 04/15/2017 4:38 PM FINDINGS: MAMMOGRAPHY: Breast composition: There are scattered areas of fibroglandular density. Mass: No suspicious mass. Architectural distortion: None. Calcifications: No suspicious calcifications. Asymmetric density: None. Skin thickening: None. Axillary adenopathy: None. IMPRESSION: No mammographic evidence of malignancy. Annual screening is recommended unless otherwise clinically indicated. ASSESSMENT: BI-RADS Category 1: Negative
== END ==
PROVIDERS: PCP Nurse Practitioner Family; Visit Provider Nurse Practitioner Family
DX: Z12.31 Encounter for screening mammogram for malignant neoplasm of breast (principal)
CPT/HCPCS: 77063; 77067

== ENCOUNTER → 2023-05-08 11:12 | Outpatient (CLI) | payer MEDICARE, OTHER, SELFPAY ==
--- NOTE | 2023-05-08 11:45 | CA_ITS ---
APPROVED REPORT Exam: Exercise Treadmill Technologist: Maryam Corcoran, Ht: 5 ft 2 in Wt: 181 lbs BSA: 1.83 m2 HR: 74 bpm BP: 152/91 mmHg Rhythm: NSR, Q waves inferiorly Medical History Medications: Lorazepam,,,,, Metoprolol,,,,, Pravastatin,,,,, Effexor,,,,, MiraLAX,,,,, Cardiac Risk Factors: HTN, Hyperlipidemia Stress Test Details Test: Manual Treadmill HR Resting HR: 76 bpm Max Heart Rate (APMHR): 147 bpm Max HR Achieved: 130 bpm Target HR (85% APMHR): 125 bpm % of APMHR: 88 Recovery HR: 94 bpm HR response to stress: Normal HR response to stress BP Resting BP: 152.0/91 mmHg Max BP: 158/80 mmHg Recovery BP: 157.0/81.0 mmHg BP response to stress: Blunted blood pressure response to stress. ECG Resting ECG: NSR, Q waves inferiorly Stress ECG: No change Arrhythmia: None Recovery ECG: No change Recovery Arrhythmia: None Clinical Exercise duration: 07:00 min Highest Stage Achieved: Exercise capacity: 9.0 METs Overall Exercise Capacity for Age: Average Stress ECG Conclusion The patient was able to walk for 7 minutes, 0 seconds (slowed the final 45 seconds). She achieved a total of 9 METS. She has an average exercise capacity compared to age and sex matched peers. She has a normal HR response, but blunted BP response, to exercise. Exercise was terminated due to generalized fatigue. She denied any chest pains. At baseline, EKG demonstrates normal sinus rhythm with Q waves in the inferior leads which may be suggestive of prior old inferior VA. At peak stress, no ST changes were present. No arrhythmias noted. Conclusion: Average exercise capacity. Normal HR response, but blunted BP response, to exercise. Normal exercise stress test. Myoview images reported separately. Test Summary REST . . . . . . . Standing REST . . . . . . . Sitting REST 04:43 0.0 0.0 76 . 152/ 91 . . Stage 1 01:00 10.0 1.7 95 . . . . Stage 1 02:00 10.0 1.7 102 . . . . Stage 1 03:00 10.0 1.7 107 . 152/ 86 . . Stage 2 01:00 12.0 2.5 111 . . . . Stage 2 02:00 12.0 2.5 115 . . . . Stage 2 . . . . . . . Myoview Injected Stage 2 03:00 12.0 2.5 119 . . . . Stage 3 . . . . . . . Protocol changed to Manual Treadmill Stage 3 01:00 14.0 3.0 124 . . . Stop exercise at 07:00 RECOVERY 01:00 0.0 0.0 110 . . . . RECOVERY 02:00 0.0 0.0 89 . 157/ 81 . . RECOVERY 03:00 0.0 0.0 87 . 158/ 80 . . RECOVERY 04:00 0.0 0.0 83 . 158/ 80 . . RECOVERY 05:00 0.0 0.0 88 . 144/ 76 . . RECOVERY 05:31 0.0 0.0 88 . 144/ 76 . . Electronically signed by : My Abbott, 05/11/2023 01:10:53
--- NOTE | 2023-05-08 11:45 | NM_ITS ---
APPROVED REPORT Exam: Nuclear Stress Test Indication: HTN, HYPERLIPIDEMIA, FM HX, C.P., SYNCOPE Patient Location: Outpatient Stress Tech: Alva Corcoran NM Tech:PHILIP Sood RT(R)(N) Ht: 5 ft 2 in Wt: 180 lbs Bra Size: B HR: 76 bpm BP: 152/91 mmHg BSA: 1.83 m2 Rhythm: NSR TID: 0.96 BMI: 32.9 History: HTN, HYPERLIPIDEMIA, FM HX, C.P., SYNCOPE Procedure: Patient exercised on Teddy protocol 7:00 minutes and sec, resting heart rate 76 bpm, resting blood pressure 152/91 mmHg, with exercise maximum heart rate achived was 130 bpm which is 88 % of the maximum predicted heart rate and blood pressure was 158/80 mmHg. Test was stopped due to FATIGUE. Patient denied any complaint of chest pain. Patient has Average exercise capacity, achieved 9.0 METs of workload on treadmill, the blood pressure response to exercise was Blunted. Cardiac Stress and Resting SPECT Images: Cardiac Stress and Resting SPECT images were obtained using technetium 99m Myoview 31.9 mCi stress and 10.80 mCi at rest. Resting and stress perfusion imaging in both supine and prone positions demonstrate no fixed or reversible perfusion defects. Gated imaging demonstrates normal global and regional LV systolic function. LVEF is calculated at 55%. Conclusion: Resting and stress perfusion imaging in both supine and prone positions demonstrate no fixed or reversible perfusion defects. Gated imaging demonstrates normal global and regional LV systolic function. LVEF is calculated at 55%. Electronically signed by : My Abbott, 05/11/2023 01:13:03
== END ==
PROVIDERS: PCP Nurse Practitioner Family; Visit Provider Nurse Practitioner Family
DX: E78.5 Hyperlipidemia, unspecified (principal); I10 Essential (primary) hypertension; I70.0 Atherosclerosis of aorta; R07.89 Other chest pain; Z82.49 Family history of ischemic heart disease and other diseases of the circulatory system
CPT/HCPCS: 78452; 93017; 93306; A9502

== ENCOUNTER → 2023-06-12 08:44 | Outpatient (CLI) | payer MEDICARE, OTHER, SELFPAY ==
--- NOTE | 2023-06-12 08:45 | FL_ITS ---
FINAL REPORT CLINICAL HISTORY: acid reflux fluoro time: .38 FINDINGS: ESOPHAGRAM HISTORY: Abdominal pain, nausea. PROCEDURE: The patient ingested barium. Effervescent crystals were also administered. Spot and overhead films were obtained. FINDINGS: The esophagus is normal caliber. There are no extrinsic lesions. There is a small sliding-type hiatal hernia. There is gastroesophageal reflux to the level of the mid esophagus. IMPRESSION: Small sliding type hiatal hernia and gastroesophageal reflux to the level of the midesophagus Films reviewed , interpreted and dictated by Dr. Davalos Transcribed by Fadi Vallejo PA-C. Reviewed, Interpreted and Dictated by Gen Davalos III, MD Transcribed by GOKUL Mcgraw Authenticated and [facility]
== END ==
PROVIDERS: PCP Nurse Practitioner Family; Visit Provider Student in an Organized Health Care Education/Training Program
DX: K21.9 Gastro-esophageal reflux disease without esophagitis (principal)
CPT/HCPCS: 74220

== ENCOUNTER → 2023-09-14 15:16 | Outpatient (CLI) | payer MEDICARE, OTHER, SELFPAY ==
--- NOTE | 2023-09-14 15:19 | MM_ITS ---
PROCEDURE INFORMATION: Exam: MG Bilateral Screening 3D Mammography Exam date and time: 09/14/2023 3:06 PM Age: 72 years old Clinical indication: Screening examination TECHNIQUE: Imaging protocol: Bilateral Screening tomosynthesis and 2D mammography including computer-aided detection (CAD) when performed. COMPARISON: 1. MG MM DIG SCREENING MAMM BI W/CAD 08/15/2022 3:45 PM 2. MG MM DIG SCREENING MAMM BI W/CAD 07/26/2021 1:13 PM FINDINGS: MAMMOGRAPHY: Breast composition: The breasts are almost entirely fatty. Mass: None. Architectural distortion: None. Calcifications: No suspicious calcifications. Asymmetric density: None. Skin thickening: None. Axillary adenopathy: None. IMPRESSION: No mammographic evidence of malignancy. Annual screening is recommended unless otherwise clinically indicated. ASSESSMENT: BI-RADS Category 1: Negative
== END ==
PROVIDERS: PCP Nurse Practitioner Family; Visit Provider Nurse Practitioner Family
DX: Z12.31 Encounter for screening mammogram for malignant neoplasm of breast (principal)
CPT/HCPCS: 77063; 77067

== ENCOUNTER 2024-10-20 11:07 | Outpatient (CLI) | payer MEDICARE, SELFPAY ==
--- NOTE | 2024-10-20 11:12 | MM_ITS ---
PROCEDURE INFORMATION: Exam: MG Bilateral Screening 3D Mammography Exam date and time: 10/20/2024 10:56 AM Age: 73 years old Clinical indication: Screening examination TECHNIQUE: Imaging protocol: Bilateral Screening tomosynthesis and 2D mammography including computer-aided detection (CAD) when performed. COMPARISON: 1. MG MM DIG SCREENING MAMM BI W/CAD 09/14/2023 3:06 PM 2. MG MM DIG SCREENING MAMM BI W/CAD 08/15/2022 3:45 PM FINDINGS: MAMMOGRAPHY: Breast composition: The breasts are almost entirely fatty. Mass: None. Architectural distortion: None. Calcifications: No suspicious calcifications. Asymmetric density: None. Skin thickening: None. Axillary adenopathy: None. IMPRESSION: No mammographic evidence of malignancy. Annual screening is recommended unless otherwise clinically indicated. ASSESSMENT: BI-RADS Category 1: Negative.
== END 2024-10-20 23:59 | disposition home or self-care (01) ==
LOC: RAD 11:08
PROVIDERS: PCP Internal Medicine Adolescent Medicine; Visit Provider Internal Medicine Adolescent Medicine
DX: Z12.31 Encounter for screening mammogram for malignant neoplasm of breast (principal)
CPT/HCPCS: 77063; 77067

== ENCOUNTER 2024-12-21 15:30 | Outpatient (CLI) | payer MEDICARE, SELFPAY ==
--- NOTE | 2024-12-21 15:34 | XR_ITS ---
FINAL REPORT TECHNIQUE: Bone densitometry calculations of the lumbar spine and left hip were obtained. CLINICAL HISTORY: SCREENING FINDINGS: Using the right hip, the bone mineral density of the femoral neck is 0.651 g/cm2, corresponding to a T-score of -1.8. Using the left hip, the bone mineral density of the femoral neck is 0.639 g/cm2, corresponding to a T-score of -1.9. Using the one third radius, the bone mineral density of the radius is 0.544 g/cm2, corresponding to a T-score of -2.5. NOTE: T-score: Standard deviation compared with peak bone mass of young adult mean. *Following the recommendations of the International Society of Bone densitometry, classification of hip BMD is based on the lower of two T-scores; total hip or femoral neck. IMPRESSION: Diminished bone density of the hips bilaterally consistent with osteopenia. Diminished bone mineral density of the radius consistent with osteoporosis. FRAX data reports 12% fracture risk for major osteoporotic fracture and 2.6% for hip fracture. Reviewed, Interpreted and Dictated by Ernestina Wolff MD Transcribed by Kathy Pruett Authenticated and [facility]
== END 2024-12-21 23:59 | disposition home or self-care (01) ==
LOC: RAD 15:31
PROVIDERS: PCP Internal Medicine Adolescent Medicine; Visit Provider Nurse Practitioner Family
DX: Z78.0 Asymptomatic menopausal state (principal)
CPT/HCPCS: 77080

== ENCOUNTER 2025-03-02 10:47 | Outpatient (CLI) | payer MEDICARE, SELFPAY ==
--- OUTSIDE RECORDS SUMMARY | 2025-03-02 10:50 | XMS_ITS | Data Portability ---
Author Organization LEYDI TACHO [facility] Address [address] [place] [address] Assessment Encounter Date Assessment Date Assessment LastModified by Organization Details LastModified Time 03/19/2023 03/19/2023 ASSESSMENT: Ms. Cook presents to the office for evaluation of return of low back pain along her waistline and down her left lower extremity that has started to improve. IMAGING: No new imaging available for review.. Nurse practitioner visit PLAN: Lumbar AP, lateral, flexion, extension x-rays Follow-up as needed moving forward Since Ms. Cook's pain has started to improve, she is going to get x-rays of her lumbar spine to evaluate her fusion instrumentation and for any instability. She is also going to continue ibuprofen daily. We did discuss that if her pain was to return she will notify our office at which point we would move forward with a steroid pack and an updated lumbar MRI for further evaluation of any radicular symptoms she is having at that time. She would then follow-up with Dr. Mari to review these advanced images to determine if she would benefit from injections or further surgical interventions. She verbalized understanding of all these instructions and is agreeable this plan. She has no further questions or concerns at this time. She is satisfied with this plan of care. [id number] Not available 03/19/2023 16:11:27 Plan of Treatment Reminders Order Date Submit Date Provider Last Modified By Organization Details Last Modified Time Details Appointments None record ed. Lab None record ed. Referral None record ed. Procedures None record ed. Surgeries None record ed. Imaging None record ed. Medication Orders None record ed. Patient TargetsNo targets recorded. Patient InstructionsNo instructions recorded. Reason for Referral None Reported. Results Created Date Observation Date Name Description Value Unit Range Abnormal Flag Note LastModifiedBy Organization Detail LastModifiedTime 03/24/20 23 03/24/2023 XR, lumbo sacra l spine , 4 or more view [address] [place] [address] Binta mahmood Name: ZAFAR mahmood : [birth year] Binta mahmood Orderi ng Provid er: MINDY EASTON Patricia EXAM DATE: 2022 EXAM: XR LUMBAR SPINE AP/LAT /FLEX/ EXT CLINIC AL INFORM ATION: Back pain. IMAGES PROVID ED: AP, latera l and coned- down views of the lumbar spine with additi onal latera l views in flexio n and extens ion. COMPAR ANIL: None. FINDIN GS AND IMPRES ABDIEL: Spinal fusion is seen at L4-L5 level. Surgic al hardwa re is satisf actori ly placed . No abnorm al hardwa re moveme nt is seen betwee n flexio n and extens ion. Degene rative change s are seen at other levels . No instab ility is identi fied. Interp reted By: Darron Lagos MD Electr onical ly Signed By: Darron Lagos MD on 023 1:47 PM [facility] Radiology [facility] [address] [place] [address], [phone], 05/27/2023 16:40:54 Result Notes None recorded. Problems Name Problem SNOMED Code Status Onset Date Resolution Date Notes Provider Name and Address Organization Details Recorded Time Pain in right hand 13914733115 9109 Active 2015 From Automated Load;Prov ider: Hawa Barrera tatus: Active Not Available [facility] 6 09:21:21 Hand pain 48362147 Active 2015 From Automated Load;Prov ider: Hawa Barrera tatus: Active Not Available [facility] 6 09:21:21 Erythrocy te sedimenta tion rate above reference range 447084652 Active 2015 From Automated Load;Prov ider: Mike BarreraLewis tatus: Active Not Available [facility] 6 09:21:22 Problem Notes None recorded. Procedures Surgical History None recorded. Imaging Results Imaging Date Name Status LastModified by Organiz ation Details LastModified Time 03/24/2023 XR, lumbosacral spine, 4 or more view completed [id number] [facility] Radiology [facility] [address] [facility], [place], [phone], 05/27/2023 16:40:54 Procedure Notes None recorded. Medical Equipment None Reported. Allergies Allergen ID Allergen Name Allergen Category Reaction Reaction Severity Criticality Documentation Date Start Date Code Code System Note Provider Name and Address Organization Details Recorded Time 477093 codeine medicatio n Not available Not available Not available 09/19/20162010 2670 RxNorm Comme nt: nause a, faint ing;C reate d By: Steff Mora douglas Date: 2010 11:05 :18 AM; Not Available [facility] 6 09:56:32 Medications Name Sig Start Date Stop Date Status Note LastModified by Organization Details LastModified Time metformin 500 mg tablet Two times a day active Frequency : bid;Alt Frequency : with food;Medi cation Descripti on: metformin ; Dosage:1; Route:ora l; refills:5 ; Quantity: 60 tablet Not Available Not Available Not Available venlafaxin e ER 75 mg capsule,ex tended release 24 hr active Not Available Not Available Not Available pravastati n 40 mg tablet active Not Available Not Available Not Available metoprolol succinate ER 100 mg tablet,ext ended release 24 hr active Not Available Not Available Not Available Mobic 7.5 mg tablet Daily 2014 active Duration: 30 days;Freq uency: daily;Med ication Descripti on: meloxicam ; Dosage:1; Route:ora l; refills:2 ; Quantity: 30 tablet Not Available Not Available Not Available venlafaxin e ER 150 mg capsule,ex tended release 24 hr active Medicatio n Descripti on: venlafaxi ne; Route:ora l; refills:0 Not Available Not Available Not Available Advil 200 mg tablet Every four hours active Duration: 10 days;Freq uency: q4h;Medic ation Descripti on: ibuprofen ; Route:ora l; refills:0 ; Quantity: 120 tablet Not Available Not Available Not Available hydrochlor othiazide 25 mg tablet active Duration: 10 days;Medi cation Descripti on: hydrochlo rothiazid e; Route:ora l; refills:0 ; Quantity: 30 tablet Not Available Not Available Not Available mupirocin 2 % topical ointment APPLY OINTMENT TOPICALLY TO AFFECTED AREA THREE TIMES DAILY FOR 5 DAYS active Not Available Not Available No t Available metoprolol succinate ER 25 mg tablet,ext ended release 24 hr active Medicatio n Descripti on: metoprolo l; Route:ora l; refills:0 Not Available Not Available Not Available lorazepam 1 mg tablet TAKE 1 TABLET BY MOUTH THREE TIMES DAILY NEEDED active Not Available Not Available No t Available hydroxychl oroquine 200 mg tablet Two times a day 2015 active Duration: 30 days;Freq uency: bid;Alt Frequency : daily;Med ication Descripti on: hydroxych loroquine ; Dosage:1; Route:ora l; refills:3 ; Quantity: 180 tablet Not Available Not Available Not Available amoxicilli n 875 mg-potassi um clavulanat e 125 mg tablet TAKE 1 TABLET BY MOUTH EVERY 12 HOURS FOR 10 DAYS active Not Available Not Available No t Available pravastati n active Instructi ons: per pt 40mg daily;Med ication Descripti on: pravastat in; Route:ora l; refills:0 Not Available Not Available Not Available Vitals Date Recorded Body weight Heart rate Systolic blood pressure Diastolic blood pressure Provider Name and Address Organization Details Last Updated DateTime 03/19/2023 90573.63 g 84 /min 143 mm[Hg] 87 mm[Hg] Cinthia Esteban [facility] 03/19/2023 15:17:19 Social History None recorded. Functional Status None recorded. Mental Status None recorded. Family History Nothing Reported. Medical History No medical history recorded. Gynecological HistoryNo gynecological history recorded. Obstetrics History GPAL:G 0 P 0 0 0 0 Past Encounters Encounter ID Performer Location Encounter Start Date Encounter Closed Date Diagnosis/Indication Diagnosis SNOMED-CT Code Diagnosis ICD10 Code Diagnosis Note [id number] MINDY CHATTERJEE APRN [facility] [address] [place] [address] 03/19/2023 13:52:50 03/20/2023 04:38:56 Lumbar radiculopathy 066789627 M54.16 Health Concerns Section Related Observation LastModified by Organization Detai ls LastModified Time None Recorded Concern Status LastModified by Organization Details LastModified Time None Recorded Advance Directives Directive None Recorded Payers Insurance Date Sequence Insurance Name Policy Number Policy Woods Covered Member ID Woods Member ID Guarantor Name 03/25/2023 2 [email or web address] - PLAN F (MEDICARE SUPPLEMENT) Zafar Cook [id number] Zafar Cook 03/16/2023 1 [place] Zafar Cook [id number] Zafar Cook 03/19/2023 2 [email or web address] [employer] INS[employer]ANCE [employer] - PLAN F (MEDICARE SUPPLEMENT) Zafar Cook [id number] Zafar Cook Notes Date Note Type Note Provider Name and Address Organization Details Recorded Time 03/19/2023 text/html Ms. Cook is a pleasant 72-year-old female who returns to the office after last being seen July 24, 2011 following her L4-[address] Mari June 18, 2011. She reports she has been doing very well following her surgery but that she recently has developed low back and left leg pain. She reports when this was at its worst at the beginning, when she was in bed she had a hard time even getting her left leg to move or lift up at all to get out of bed. She reports low back pain along her waistline with radiation down her left leg but not all the way down to her foot. She has been taking ibuprofen for over 6 months every day. She denies any owen bowel or bladder control loss though she does report some bladder urgency. She denies any saddle paresthesias. She has no new imaging of her lumbar spine available for review. She does report that her symptoms have recently improved and are not as bad as they once were. MINDY CHATTERJEE, FIELD TECHNICAL SPECIALIST [address] [place], [address], [place] [facility] 03/19/2023 16:11:36 OBGyn Episode No OBEpisode recorded.
--- NOTE | 2025-03-02 10:52 | XR_ITS ---
FINAL REPORT CLINICAL HISTORY: c/o low back pain FINDINGS: There is no acute bony abnormality. There are mild degenerative changes of the sacroiliac joints bilaterally. There is no ankylosis. There are no bony erosions. IMPRESSION: Mild degenerative changes without acute process. Reviewed, Interpreted and Dictated by Judy Tamayo MD Transcribed by GOKUL Mcgraw Authenticated and [facility]
--- NOTE | 2025-03-02 10:53 | XR_ITS ---
FINAL REPORT CLINICAL HISTORY: c/o low back pain FINDINGS: There is mild scoliosis.. Vertebral body height is preserved. The patient is status post L4-L5 fusion. The hardware is intact.. No acute paraspinal abnormality is identified. Multilevel degenerative disc disease is greatest at L3-L4. IMPRESSION: Postoperative and degenerative changes without acute bony abnormality. Reviewed, Interpreted and Dictated by Judy Tamayo MD Transcribed by GOKUL Mcgraw Authenticated and [facility]
== END 2025-03-02 23:59 | disposition home or self-care (01) ==
LOC: RAD 10:48
PROVIDERS: PCP Nurse Practitioner Family; Visit Provider Nurse Practitioner Family
DX: G89.29 Other chronic pain (principal); M54.50 Low back pain, unspecified
CPT/HCPCS: 72110; 72202